=== PATIENT | female | born 1990 | race Caucasian/White ===

== ENCOUNTER 2018-02-25 20:35 | Observation (INO) | payer OTHER ==
[~2018-02-25] VITALS: Ht 157.5 cm; Wt 76.7 kg
[2018-02-25] MEDS ORDERED: PREN-546 PO (22:49)
== END 2018-02-26 08:10 | disposition home or self-care (01) ==
LOC: MLD 20:35
PROVIDERS: ADMIT Obstetrics & Gynecology; ATTEND Obstetrics & Gynecology
DX: O46.92 Antepartum hemorrhage, unspecified, second trimester (principal); Z3A.25 25 weeks gestation of pregnancy
CPT/HCPCS: 76805; 81000; G0378; Q0092